=== PATIENT | female | born 1985 | race Hispanic/Latino ===

== ENCOUNTER 2021-02-16 03:52 | Emergency (ER) | payer MEDICAID, OTHER ==
[~2021-02-16] VITALS: Ht 157.5 cm; Wt 102.1 kg
[2021-02-16] MEDS ORDERED: HYOSCYAMINE SULFATE 0.125 MG TAB.SUBL SL SCH (04:30)
[2021-02-16] MEDS ORDERED: MORPHINE 2 MG SYG IVP ONE (04:30)
[2021-02-16] MEDS ORDERED: FAMOTIDINE 20MG VIAL IV ONE (04:30)
[2021-02-16] MEDS ORDERED: ONDANSETRON 4MG INJ IVP ONE (04:30)
[2021-02-16 04:35] LABS: BASOPHILS % (AUTO) 0.3 % (0.0-5.0); EOSINOPHILS % (AUTO) 4.1 % (0.0-8.0); HEMATOCRIT 38.8 % (36-48); LYMPHOCYTES % (AUTO) 30.1 % (21.0-51.0); MEAN CORPUSCULAR HEMOGLOBIN 24.7 pg (27.0-33.0); MEAN CORPUSCULAR HGB CONC 30.7 g/dL (32.0-36.0); MEAN CORPUSCULAR VOLUME 80.7 fL (79-99); NEUTROPHILS % (AUTO) 56.9 % (40.0-77.0); PLATELET COUNT (AUTO) 269 K/uL (130-400); RED BLOOD CELL COUNT(AUTO) 4.81 MIL/uL (4.00-5.50); RED CELL DISTRIBUTION WIDTH 15.1 % (11.0-15.5); WHITE BLOOD COUNT (AUTO) 7.3 K/uL (4.8-10.8)
[2021-02-16 04:36] LABS: BILIRUBIN,URINE Negative (NEGATIVE); COLOR,URINE Yellow (YELLOW); GLUCOSE, URINE (UA) Negative (NEGATIVE); KETONES,URINE Negative (NEGATIVE); LEUKOCYTE ESTERASE ,URINE Trace (NEGATIVE); NITRATE,URINE Negative (NEGATIVE); OCCULT BLOOD,URINE Large (NEGATIVE); PH,URINE 5.5 (5.0-8.0); PROTEIN,URINE Trace mg/dL (NEGATIVE)
[2021-02-16 04:39] LABS: APPEARANCE,URINE HAZY (CLEAR); HCG,QUAL RESULT NEGATIVE (NEGATIVE)
[2021-02-16 04:43] LABS: BACTERIA,URINE Few /HPF (None Seen); MUCUS,URINE Moderate LPF (None Seen)
[2021-02-16 04:55] LABS: CREATININE 0.7 mg/dL (0.5-1.5); POTASSIUM 3.6 mmol/L (3.5-5.1)
[2021-02-16 05:00] LABS: ALBUMIN 3.3 g/dL (3.5-5.0); BILIRUBIN,TOTAL 0.2 mg/dL (0.2-1.0); TOTAL PROTEIN, SERUM 7.4 g/dL (6.0-8.3)
[2021-02-16] MEDS ORDERED: KETOROLAC 30MG VIAL (30MG/ML) IV ONE (06:00)
[2021-02-16] MEDS ORDERED: FAMO20TA8 PO (07:56)
[2021-02-16] MEDS ORDERED: LIDOCAINE HCL 2% VISCOUS 15 ML UDCUP PO ONE (08:00)
[2021-02-16] MEDS ORDERED: MAG/ALUM/SIMETH 30 ML UDCUP PO ONE (08:00)
[2021-02-16 08:25] VITALS: BP 109/62
[2021-02-16] MEDS ORDERED: LACT10PA5 PO (08:37)
== END 2021-02-16 08:58 | disposition home or self-care (01) ==
LOC: EDH 03:52
DX: K29.70 Gastritis, unspecified, without bleeding (principal); K21.9 Gastro-esophageal reflux disease without esophagitis; Z79.1 Long term (current) use of non-steroidal anti-inflammatories (NSAID); Z79.899 Other long term (current) drug therapy
CPT/HCPCS: 36415; 74176; 80053; 81001; 81025; 83690; 85025; 96374; 96375; 99284; J1885; J2405; J3490